=== PATIENT | male | born 1980 | race Caucasian/White ===

== ENCOUNTER 2020-09-26 09:58 | Outpatient (CLI) | payer OTHER, SELFPAY ==
--- NOTE | ~2020-09-26 | XR_ITS ---
XR knee LT min 4V DATE: 09/26/2020 10:23 INDICATION: Left knee pain. No known injury. TECHNIQUE: 4 views, including standing AP, PA and lateral views and sunrise view COMPARISON: None FINDINGS: Prominent superior pole patellar enthesopathy. There is moderate loss of medial compartment joint space height. There is no fracture or dislocation, periosteal reaction or bone destruction, radiopaque intra-articu lar loose body or chondrocalcinosis or significant joint effusion is evident. IMPRESSION: Moderately prominent loss of medial compartment joint space height Superior pole patellar enthesopathy Reviewed, dictated and finalized at location A.
== END 2020-09-26 09:59 | disposition home or self-care (01) ==
LOC: ANHIMG 10:05
PROVIDERS: PCP Family Medicine; Visit Provider Physician Assistant
DX: M25.562 Pain in left knee (principal)
CPT/HCPCS: 73564

== ENCOUNTER 2020-12-07 21:58 | Emergency (ER) | payer OTHER, SELFPAY ==
--- NOTE | ~2020-12-07 | XR_ITS ---
XR femur RT min 2V DATE: 12/08/2020 04:39 INDICATION: Fall. Right leg pain. TECHNIQUE: AP and lateral views COMPARISON: None FINDINGS: Mild to moderate right hip osteoarthritis. 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 Enthesopathy of the superior pole of patella at the quadriceps tendon insertion and some focal calcif ication in the distal quadriceps tendon. IMPRESSION: Right hip osteoarthritis Reviewed, dictated and finalized at location A. IMPRESSION: Right hip osteoarthritis
--- NOTE | ~2020-12-07 | XR_ITS ---
EXAMINATION: XR knee RT min 4V EXAM DATE: 12/07/2020 23:47 INDICATION: Fell 3 hours ago, right knee pain. Initial encounter. TECHNIQUE: Right knee frontal, crosstable lateral, orthogonal oblique projections for interpretation . There is no prior study for comparison. FINDINGS: No evidence osteochondral defect or joint body in the right knee joint. There are no acut e fractures or dislocations identified. There is no subcutaneous gas. The soft tissue is unremarkab le. There are no radiopaque foreign bodies. IMPRESSION: No acute osseous findings. Reviewed, dictated and finalized at location G. IMPRESSION: No acute osseous findings.
[2020-12-07 23:29] VITALS: BP 134/82; PULSE 96; RESP 18; TEMP 37; O2SAT 100
[2020-12-08 02:58] VITALS: BP 132/81; PULSE 84; RESP 20; TEMP 37.2; O2SAT 97
[2020-12-08 03:54] VITALS: BP 139/79; PULSE 70; O2SAT 100
--- NOTE | 2020-12-08 04:26 | ED.LOWEXIN ---
HPI - Extremity Injury (Lower) General Chief Complaint: Extremity Injury, Lower Stated Complaint: right knee pain Time Seen by Provider: 12/08/20 03:59 Source: patient and RN notes reviewed Mode of arrival: ambulatory Limitations: no limitations History of Present Illness HPI Narrative: This is a 40 year old male who presents for evaluation right knee pain . Patient states earlier in the evening he accidentally slipped on wet floor. He states he braced with his right leg and he felt a pop in his knee and lower thigh. He has not taken anything for pain. He denies hitting his head or LOC. His pain is worse with attempting to bend his right knee. He states his pain radiates up his upper thigh intermittent. He had initial tingling to his knee. He reports his pain is 5/10. Related Data Allergies Allergy/AdvReac Type Severity Reaction Status Date / Time iodine Allergy Unknown allergic Verified 12/08/20 04:14 Review of Systems Review of Systems: All systems reviewed & are unremarkable except as noted in HPI and below PMFSH Past Medical History Medical History Fam hx-ischem heart disease Mixed hyperlipidemia MARY ALICE (obstructive sleep apnea) shoulder Family History Family History Mother Family history of mental disorder Hypertension Family history of elevated blood lipids Father Family history of mental disorder Family history of bipolar disorder Hypertension Family history of elevated blood lipids Family history of alcoholism Other Depression Family history of cardiovascular disease Family history of hypercholesterolemia Malignant neoplasm of prostate Social History Social History Alcohol intake: current Exam Const: General: no acute distress and alert Orientation/consciousness: patient oriented x3 Eyes: EOM: EOMs intact bilaterally Resp: Effort & Inspection: normal respiratory effort Neuro: General: patient oriented x3, moves all extremities and CN's II-XI intact bilaterally Extrem: Other: fullness suprapatella, able to flex knee. unable to hold leg extended off bed without pain. sensation intact. Strong bilateral pedal pulses. Psych: Mental Status: mental status grossly normal Affect: normal affect Course Reevaluation(s) Reevaluation #1: I discussed with patient discharge plan and management. He has knee immobilizer in place and he was given crutch training. He has no other questions or concerns. Date: 12/08/20 Time: 05:42 Vital Signs Vital signs: Vital Signs Temperature 98.6 F 12/07/20 23:29 Pulse Rate 96 12/07/20 23:29 Respiratory Rate 18 12/07/20 23:29 Blood Pressure 134/82 12/07/20 23:29 Pulse Oximetry 100 12/07/20 23:29 Temperature 98.9 F 12/08/20 02:58 Pulse Rate 70 12/08/20 03:54 Respiratory Rate 20 12/08/20 02:58 Blood Pressure 139/79 12/08/20 03:54 Pulse Oximetry 100 12/08/20 03:54 MDM - Extremity Injury (Lower) Imaging Data Attestation: I personally reviewed and interpreted this imaging study as follows: My impression: right femur- no acute fracture Radiologist's impression: ITS Impressions Knee X-Ray 12/07/20 23:49 IMPRESSION: No acute osseous findings. Discharge Plan Discharge Clinical Impression: Quadriceps muscle strain Qualifiers: Encounter type: initial encounter Laterality: right Qualified Code(s): S76.111A - Strain of right quadriceps muscle, fascia and tendon, initial encounter Patient Disposition: Home, Self-Care Condition: Stable Instructions: Antibiotic Form, Knee Pain (ED), Knee Immobilizer (ED) Additional Instructions: Call your primary care physician on Thursday to get further evaluation for physical therapy and possible referral to orthopedic surgery. REst, wear knee immobilizer and ice. Prescr
[2020-12-08] MEDS: IBUPROFEN 400 MG TABLET 800 MG PO (05:53)
== END 2020-12-08 05:59 | disposition home or self-care (01) ==
PROVIDERS: Emergency Provider General Practice; PCP Family Medicine
DX: S76.111A Strain of right quadriceps muscle, fascia and tendon, initial encounter (principal); E78.2 Mixed hyperlipidemia; G47.33 Obstructive sleep apnea (adult) (pediatric); W01.0XXA Fall on same level from slipping, tripping and stumbling without subsequent striking against object, initial encounter
CPT/HCPCS: 73552; 73564; 99283; A9270

== ENCOUNTER 2020-12-19 07:00 | Outpatient (CLI) | payer OTHER, SELFPAY ==
--- NOTE | ~2020-12-19 | MR_ITS ---
EXAMINATION: MR femur RT wo con DATE: 12/19/2020 07:51 INDICATION: Right quadriceps muscle strain TECHNIQUE: Magnetic resonance imaging (MRI) of the femur/thigh was performed without intravenous cont rast. Sequences included axial, sagittal and coronal T1-weighted FSE, axial T2-weighted FS FSE and s agittal and coronal fluid sensitive FSE STIR. The contralateral left thigh is included on the coronal images. COMPARISON: Right knee and femur radiographs dated 12/07/2020 and 12/08/2020 respectively FINDINGS: Despite the large bwgnm-ju-mfti of imaging the right knee is imaged only to the metaphyseal region of the distal femur with the patella excluded from the [id number]. At this level and retracted tear margin of the distal quadriceps tendon is seen which appears to involve the anterior two thirds of th e tendon including the entire tendon component of the rectus femoris and vastus medialis and the cindy rity of the vastus lateralis. A small portion of the vastus lateralis as well as the deeper vastus in termedius contributions to the distal quadriceps tendon extending to the inferior most images, unclea r whether these remain intact more distally or not. There is fluid likely representing hematoma exten ding cephalad along the boundary between the vastus intermedius muscle belly and the more superficial rectus femoris, vastus medialis and vastus lateralis muscle bellies. This extends approximately 18 c m in maximal craniocaudal extent. The fluid collection more distally measures up to 6.5 cm in width a nd 1 cm in thickness on the transaxial images. The proximal hamstring tendons remain intact as does t he proximal tendon of the rectus femoris. No asymmetric muscular atrophy in the bilateral thighs. Nor mal bone marrow signal throughout. IMPRESSION: 1. High-grade partial and potentially complete tear of the distal quadriceps tendon with the distal t ear margin not included within the [id number]-ni-uloc Reviewed, dictated and finalized at location A. IMPRESSION: 1. High-grade partial and potentially complete tear of the distal quadriceps te ndon with the distal tear margin not included within the [id number]
== END 2020-12-19 07:01 ==
PROVIDERS: PCP Family Medicine; Visit Provider Physician Assistant Medical
DX: S76.111A Strain of right quadriceps muscle, fascia and tendon, initial encounter (principal); X58.XXXA Exposure to other specified factors, initial encounter
CPT/HCPCS: 73718

== ENCOUNTER 2020-12-24 15:45 | Emergency (ER) | payer OTHER, SELFPAY ==
[2020-12-24 15:54] VITALS: BP 182/100; PULSE 113; RESP 19; TEMP 37; O2SAT 97
[2020-12-24] MEDS: methylPREDNISolone SOD SUCC 125 MG VIAL IV PUSH (16:04)
[2020-12-24] MEDS: EPINEPHrine HCL INJ 1 MG/ML AMPUL 0.3 MG IM (16:04)
[2020-12-24] MEDS: FAMOTIDINE 20 MG/2 ML VIAL IV PUSH (16:04)
[2020-12-24] MEDS: SODIUM CHLORIDE 0.9% IV 1,000 ML 999 ML IV CONT (16:05)
[2020-12-24 16:09] VITALS: BP 133/98; PULSE 95; RESP 14; O2SAT 97
[2020-12-24 16:45] VITALS: BP 168/74; PULSE 101; RESP 19; O2SAT 97
--- NOTE | 2020-12-24 18:43 | ED.GENADULT ---
HPI - General Adult General Chief complaint: Allergic Reaction Stated complaint: Bee Sting Allergic reaction Time Seen by Provider: 12/24/20 15:53 Source: patient Mode of arrival: ambulatory Limitations: no limitations History of Present Illness HPI narrative: Patient is a 40-year-old male who presents for EMS status post being stung by a bee developed diffuse itching was mowing when this occurred was stung in the posterior scalp patient took 50 mg of Benadryl and on arrival is in the room in no distress but appears uncomfortable with diffuse itching patient denies other complaints specifically no difficulty breathing or swallowing Related Data Allergies Allergy/AdvReac Type Severity Reaction Status Date / Time iodine Allergy Unknown allergic Verified 12/24/20 15:58 Review of Systems Review of Systems: All systems reviewed & are unremarkable except as noted in HPI and below PMFSH Past Medical History Medical History Fam hx-ischem heart disease Mixed hyperlipidemia MARY ALICE (obstructive sleep apnea) shoulder Family History Family History (Reviewed 12/12/20 @ 16:59 by Jenelle Gamble [facility]) Mother Family history of mental disorder Hypertension Family history of elevated blood lipids Father Family history of mental disorder Family history of bipolar disorder Hypertension Family history of elevated blood lipids Family history of alcoholism Other Depression Family history of cardiovascular disease Family history of hypercholesterolemia Malignant neoplasm of prostate Social History Social History Alcohol intake: current Drinks per week: 10 Substance use: never Substance use type: does not use Gender identity (if verbalized by the patient): Male Exam Narrative: GENERAL: Well-appearing, well-nourished, uncomfortable and in no acute distress. HEAD: Normocephalic, atraumatic. EYES: PERRLA and EOMI. ENT: Nares clear, no rhinorrhea or epistaxis. Mucous membranes moist. No angioedema in the oropharynx NECK: Supple. No adenopathy or masses. No stridor CHEST: Clear to auscultation. No respiratory distress. No wheezes rales or rhonchi HEART: Regular rate and rhythm. No murmur heard. EXTREMITIES: Normal range of motion. No edema. SKIN: Warm, dry, no rash. Posterior scalp with an area of irritation consistent with bee sting NEURO: No focal deficits. Alert and oriented x3. Cranial nerves II through XII grossly intact PSYCH: Normal mood and affect. Course Course Emergency Course: Patient evaluated the emergency department in the room in no distress aware of case findings treatment plan diagnosis marked improvement will be discharged home treated as an outpatient felt appropriate for this treatment plan hemodynamically stable ABCs and vital signs intact and stable Vital Signs Vital signs: Vital Signs Temperature 98.6 F 12/24/20 15:54 Pulse Rate 113 H 12/24/20 15:54 Respiratory Rate 19 12/24/20 15:54 Blood Pressure 182/100 H 12/24/20 15:54 Pulse Oximetry 97 12/24/20 15:54 Temperature 98.6 F 12/24/20 15:54 Pulse Rate 101 H 12/24/20 16:45 Respiratory Rate 19 12/24/20 16:45 Blood Pressure 168/74 H 12/24/20 16:45 Pulse Oximetry 97 12/24/20 16:45 Medical Decision Making MDM Narrative Medical decision making narrative: Patient presented with allergic reaction secondary to bee sting no concerning findings at this time is been observed and medicated and felt appropriate for outpatient reevaluation given his marked improvement Vital Signs Vital Signs: Vital Signs Temperature 98.6 F 12/24/20 15:54 Pulse Rate 113 H 12/24/20 15:54 Respiratory Rate 19 12/24/20 15:54 Blood Pressure 182/100 H 12/24/20 15:54 Pulse Oximetry 97 12/24/20 15:54 Temperature 98.6 F 12/24/20 15:54 Pulse Rate 101 H 12/24/20 16:45 Respiratory Rate 19
[2020-12-24 19:00] VITALS: BP 139/85; PULSE 83; RESP 16; O2SAT 95
== END 2020-12-24 19:03 | disposition home or self-care (01) ==
PROVIDERS: Emergency Provider Emergency Medicine; PCP Family Medicine
DX: T63.441A Toxic effect of venom of bees, accidental (unintentional), initial encounter (principal); E78.2 Mixed hyperlipidemia; G47.33 Obstructive sleep apnea (adult) (pediatric)
CPT/HCPCS: 96361; 96372; 96374; 96375; 99284; J0171; J2930; J7030

== ENCOUNTER 2024-05-25 03:08 | Day surgery (SDC) | payer OTHER, SELFPAY ==
[2024-05-04 08:57] VITALS: BMI 38.0
--- NOTE | 2024-05-25 12:11 | WPDANESEPPF ---
Anes - Initial Pre Proc Eval Procedure: Operation Date: 05/25/24 13:30 Proposed Procedures p Screening Colonoscopy - Matt Cunningham MD Date/Time: 05/25/24 12:11 Surgeon: Matt Cunningham MD Pre Op Diagnosis: screening colon Patient Data Age: 43 Gender: M Height: 1.83 m Weight: 128.7 kg Allergies Allergy/AdvReac Type Severity Reaction Status Date / Time iodine Allergy Unknown allergic Verified 05/25/24 12:04 Home Medications ?Medication ?Instructions ?Recorded ?Confirmed ?Type omeprazole 20 mg capsule,delayed 20 mg PO DAILY #90 caps 07/14/23 05/04/24 Rx release sildenafil 100 mg tablet (Viagra) 100 mg PO DAILY PRN sexual 02/22/24 05/04/24 Rx activity #10 tabs epinephrine 0.3 mg/0.3 mL 0.3 mg IM ONCE PRN anaphylaxis 05/04/24 05/04/24 History injection, auto-injector (EpiPen 2-Nimesh) Patient hx anesthesia problems: none Family hx anesthesia problems: none Results Review: All pre-operative results and documents have been reviewed as part of the pre-operative evaluation. [facility] Past Medical History Medical History Bee sting-induced anaphylaxis Anaphylactic reaction Injury of quadriceps muscle Surgically repaired (Dr Hernandez) shoulder Fam hx-ischem heart disease Mixed hyperlipidemia MARY ALICE (obstructive sleep apnea) Family History Family History Mother Family history of mental disorder Hypertension Family history of elevated blood lipids Father Family history of mental disorder Family history of bipolar disorder Hypertension Family history of elevated blood lipids Family history of alcoholism Other Depression Family history of cardiovascular disease Family history of hypercholesterolemia Malignant neoplasm of prostate Social History Social History Social History: Caffeine-coffee daily Smoking status: Never smoker Alcohol intake: current Drinks per week: 10 Substance use: never Substance use type: does not use and other Lack of Transportation: No Lack of Food: Never True Current Housing: I Have Housing Concerned About Future Housing: No Difficulty Paying Gas/Electric Bills: No Difficulty Paying for Meds: No Currently Unemployed: No Education: Bachelor's Degree Difficulty w/ Childcare or Family Care: No Living arrangements: with family Occupation/Education: occupation Gender identity (if verbalized by the patient): Male Spiritual care concerns: No Anes - Eval Final PreProcedure Day of Procedure 05/25/24 12:11 Patient weight: obese Heart: regular rate and rhythm Lungs: clear to auscultation and normal air movement Airway: Mallampati scale class II Neurological: alert and oriented Last oral intake: >/= 8 hours ASA classification: III Emergent: no Anesthetic plan: proceed Anesthesia type and monitoring: general GIVS and standard monitoring Results Review: All pre-operative results and documents have been reviewed as part of the pre-operative evaluation. Informed Consent: The patient's anesthetic plan and its attendant risks and benefits were discussed with the patient/family/POA. Questions were solicited and answers provided to the satisfaction of the patient/family/POA.
[2024-05-25] MEDS: LACTATED RINGERS 1,000 ML 150 ML IV CONT (12:13)
[2024-05-25 12:15] VITALS: BP 134/77; PULSE 65; RESP 18; TEMP 36.1; O2SAT 95
--- NOTE | 2024-05-25 12:18 | PM.IMHP ---
H&P: HPI History of Present Illness Date/Time: 05/25/24 12:18 Chief Complaint: Screening colonoscopy Narrative: This is the patient's first colonoscopy. There are no GI symptoms and there is no family history of colorectal cancer. Review of Systems Review of Systems: All systems reviewed & are unremarkable except as noted in HPI and below PMFSH Past Medical History Medical History Bee sting-induced anaphylaxis Anaphylactic reaction Injury of quadriceps muscle Surgically repaired (Dr Hernandez) shoulder Fam hx-ischem heart disease Mixed hyperlipidemia MARY ALICE (obstructive sleep apnea) Family History Family History Mother Family history of mental disorder Hypertension Family history of elevated blood lipids Father Family history of mental disorder Family history of bipolar disorder Hypertension Family history of elevated blood lipids Family history of alcoholism Other Depression Family history of cardiovascular disease Family history of hypercholesterolemia Malignant neoplasm of prostate Social History Social History Social History: Caffeine-coffee daily Smoking status: Never smoker Alcohol intake: current Drinks per week: 10 Substance use: never Substance use type: does not use and other Lack of Transportation: No Lack of Food: Never True Current Housing: I Have Housing Concerned About Future Housing: No Difficulty Paying Gas/Electric Bills: No Difficulty Paying for Meds: No Currently Unemployed: No Education: Bachelor's Degree Difficulty w/ Childcare or Family Care: No Living arrangements: with family Occupation/Education: occupation Gender identity (if verbalized by the patient): Male Spiritual care concerns: No Meds Home Medications and Allergies Home Medications ?Medication ?Instructions ?Recorded ?Confirmed ?Type omeprazole 20 mg capsule,delayed 20 mg PO DAILY #90 caps 07/14/23 05/25/24 Rx release sildenafil 100 mg tablet (Viagra) 100 mg PO DAILY PRN sexual 02/22/24 05/04/24 Rx activity #10 tabs epinephrine 0.3 mg/0.3 mL 0.3 mg IM ONCE PRN anaphylaxis 05/04/24 05/04/24 History injection, auto-injector (EpiPen 2-Nimesh) Allergies Allergy/AdvReac Type Severity Reaction Status Date / Time iodine Allergy Unknown allergic Verified 05/25/24 12:04 Vital Signs Vital Signs - 24 hr 05/25/24 12:15 Temperature 97 F L Pulse Rate 65 Respiratory Rate 18 Blood Pressure 134/77 Pulse Oximetry 95 Oxygen Delivery Room Air Exam Const: General: cooperative and healthy appearing Resp: Effort & Inspection: normal respiratory effort and able to speak in complete sentences Auscultation: clear to auscultation bilaterally Cardio: Rate: regular rate Rhythm: regular rhythm GI: Inspection: normal to inspection GI Palp: No No hepatosplenomegaly present Auscultation: normal bowel sounds Rectal Exam: deferred Skin: General skin exam: normal color Psych: Appearance: grossly normal Mental Status: mental status grossly normal Assessment and Plan Assessment and plan (1) Colon cancer screening: Code(s): Z12.11 - Encounter for screening for malignant neoplasm of colon Status: Acute Assessment and Plan: The patient is deemed a good candidate for the procedure. Consent signed. Will proceed.
[2024-05-25] MEDS: SIMETHICONE ORAL SUSPENSION 20 MG/0.3 ML 30 ML BOTTLE 0.6 ML IRRIGATION (12:29)
[2024-05-25 12:41] VITALS: BP 117/77; PULSE 70; RESP 16; O2SAT 96
[2024-05-25 12:51] VITALS: BP 130/86; PULSE 70; RESP 20; O2SAT 98
[2024-05-25 13:01] VITALS: BP 129/86; PULSE 66; RESP 20; O2SAT 100
== END 2024-05-25 13:11 | disposition home or self-care (01) ==
PROVIDERS: PCP Family Medicine; Visit Provider Internal Medicine Gastroenterology
PROC: 0DJD8ZZ Inspection of Lower Intestinal Tract, Via Natural or Artificial Opening Endoscopic (ICD-10-PCS; CPT 45378; principal; 2024-05-25 13:30)
DX: Z12.11 Encounter for screening for malignant neoplasm of colon (principal); D12.8 Benign neoplasm of rectum; E78.2 Mixed hyperlipidemia; G47.33 Obstructive sleep apnea (adult) (pediatric); E66.9 Obesity, unspecified; Z68.38 Body mass index [BMI] 38.0-38.9, adult; Z80.42 Family history of malignant neoplasm of prostate; Z82.49 Family history of ischemic heart disease and other diseases of the circulatory system
CPT/HCPCS: 45385; 88305; J2003; J2704; J7120